=== PATIENT | male | born 1965 ===

== ENCOUNTER 2016-11-16 08:52 | Day surgery (SDC) | payer MEDICAID ==
[2016-11-10 08:30] VITALS: BMI 31.5
--- NOTE | 2016-11-16 11:12 | CP.SDSHP ---
Same Day Surgery H & P - History Proposed Procedure: US guided FNA of thyroid nodules Pre-Op Diagnosis: Goiter, multinodular thyroid. - Allergies Allergies: Allergies No Known Allergies Allergy (Verified 11/10/16 08:30) - Physical Exam Vital Signs: Vital Signs 11/16/16 09:03 Temperature 97.9 F Pulse Rate 74 Respiratory 20 Rate Blood Pressure 124/76 O2 Sat by Pulse 99 Oximetry Mental Status: Alert & Oriented x3 Neuro: WNL Heart: WNL Lungs: WNL - {Optional Preform as Required} ENT: Other (visibl goiter) - Impression Impression: Thyroid ultrasound showed multiple left and right thyroid nodules. The report from the outside hospital did not mention the number of nodules. Mr. Denny has atleast 7 nodules on the left and 5 on the right all of which are complex. Plan US guided of FNA of a large left and right nodule. Pt. Evaluated Today:Candidate for Anesthesia & Procedure: No Short Stay Discharge - Short Stay Discharge Admitting Diagnosis/Reason for Visit: THYROID BIOPSY Disposition: HOME/ ROUTINE
--- NOTE | 2016-11-16 11:14 | PCM.SURG1 ---
Surgeon's Initial Post Op Note - Surgeon's Notes Surgeon: Juan Carlos Bennett MD [place]: NONE Type of Anesthesia: Local Pre-Operative Diagnosis: Multinodular goiter Operative Findings: US showed at least 7 left thyroid nodule and 5 right nodule. Post-Operative Diagnosis: Multinodular goiter Operation Performed: US guided FNA of a 3.5 cm left medial midpole nodule and a 3 cm right midpole nodule. Specimen/Specimens Removed: 25 g FNA x 4 passes per nodule Estimated Blood Loss: EBL {In ML}: 0 Blood Products Given: N/A Drains Used: No Drains Post-Op Condition: Good Date of Surgery/Procedure: 11/16/16 Time of Surgery/Procedure: 11:10
[2016-11-16 11:44] VITALS: O2SAT 97
[2016-11-16 11:45] VITALS: BP 106/63; PULSE 72; RESP 18; TEMP 98.4
--- NOTE | 2016-11-16 11:51 | US ---
PROCEDURE: Date of Procedure: 11/16/2016 PROCEDURE: 1. Ultrasound guided FNA of left thyroid nodule, CPT 33001 2. Ultrasound guided FNA of RIGHT thyroid nodule, 3. Ultrasound guidance for FNA, 61253 Medications: 1% Lidocaine HISTORY: Enlarged thyroid nodules. TECHNIQUE: Following informed consent and procedure time-out, a limited ultrasound patient's neck confirmed the presence of multiple enlarged right and left thyroid nodules. Outside imaging report documented a large left thyroid nodule and large right thyroid nodule. There are at least 7 large left thyroid nodules all of which are complex. Multiple right thyroid nodules also present. After the patient's neck was prepped and draped in the usual sterile fashion, the skin was anesthetized with 1% lidocaine. Ultrasound-guided fine needle aspiration was then performed of the large 3.5 centimeter left thyroid nodule in the medial midpole. A total of 4 passes were made into the nodule with 27 gauge needle under ultrasound guidance. The FNA specimen was sent for routine pathology. Ultrasound guided FNA was then performed of the a large 2.5 centimeter right thyroid nodule in the midpole. Again 4 passes were made into the nodule with 25 gauge needle. The FNA specimen was sent for routine pathology. Post biopsy ultrasound showed no hematoma. IMPRESSION: Multiple left and right thyroid nodules in a multinodular goiter. Ultrasound-guided FNA of the a large left midpole thyroid nodule and a large right midpole nodule.
== END 2016-11-16 11:35 | disposition home or self-care (01) ==
LOC: C.SPRAD 08:52
PROVIDERS: ATTEND Radiology Vascular & Interventional Radiology
DX: E04.1 Nontoxic single thyroid nodule (principal)